=== PATIENT | male | born 1980 | race Asian ===

== ENCOUNTER 2019-04-03 07:02 | Emergency (ER) | payer OTHER ==
[2019-04-03 07:18] VITALS: BP 109/84
[2019-04-03] MEDS ORDERED: Albuterol/Ipratropium NEB.SOL* Albuterol 2.5 MG/Ipratropium 0.5 MG 3 ML INH ONE (07:24)
--- NOTE | 2019-04-03 07:29 | UC ---
Respiratory Complaint HPI - HPI Summary HPI Summary: Mr. Goncalves started with an asthma exacerbation last night. Since midnight is uses inhaler couple of hours most recently just prior to getting here. He states that he's had a cold for a few days but that it's not bad. He has been on steroids before but never been admitted to the hospital. - History of Current Complaint Chief Complaint: UCRespiratory Stated Complaint: asthma Time Seen by Provider: 04/03/19 07:20 Hx Obtained From: Patient Onset/Duration: Sudden Onset Timing: Constant Severity Initially: Moderate Severity Currently: Mild Pain Intensity: 2 Character: Cough: Nonproductive Alleviating Factors: Bronchodilator Associated Signs And Symptoms: Positive: Wheezing - Allergies/Home Medications Allergies/Adverse Reactions: Allergies Allergy/AdvReac Type Severity Reaction Status Date / Time No Known Allergies Allergy Verified 04/03/19 07:18 Home Medications: Home Medications Albuterol HFA INHALER* 1 puff INH 04/03/19 [History] PMH/Surg Hx/FS Hx/Imm Hx Respiratory History: Asthma - Surgical History Surgical History: Yes Surgery Procedure, Year, and Place: cranial - Social History Alcohol Use: None Substance Use Type: None Smoking Status (MU): Never Smoked Tobacco Review of Systems All Other Systems Reviewed And Are Negative: Yes Constitutional: Positive: Negative ENT: Positive: Nasal Discharge Respiratory: Positive: Cough Physical Exam - Summary Physical Exam Summary: He is nontoxic in appearance with stable vital signs aside from tachycardia. Triage Information Reviewed: Yes Appearance: Well-Appearing Vital Signs: Initial Vital Signs Temp 98.4 F 04/03/19 07:11 Pulse 130 04/03/19 07:11 Resp 20 04/03/19 07:11 BP 109/84 04/03/19 07:11 Pulse Ox 100 04/03/19 07:11 Vital Signs Reviewed: Yes ENT Exam: Normal Neck exam: Normal Respiratory: Positive: Wheezing - Mild Cardiovascular: Positive: Tachycardia Skin Exam: Normal Respiratory Course/Dx - Course Course Of Treatment: After DuoNeb his lungs were clear, he felt improved and his heart rate was about 125. He's been using his inhaler a lot and I think that has a lot to do with his heart rate. I recommended a steroid burst and follow up with his PCP - Differential Dx/Diagnosis Provider Diagnosis: Asthma exacerbation Discharge ED - Sign-Out/Discharge Documenting (check all that apply): Patient Departure All imaging exams completed and their final reports reviewed: No Studies - Discharge Plan Condition: Stable Disposition: HOME Patient Education Materials: Asthma (ED) Referrals: Joe Lindsey NP [Primary Care Provider] - - Billing Disposition and Condition Condition: STABLE Disposition: Home
[2019-04-03] MEDS ORDERED: Albuterol HFA INHALER* 8 gm MDI INH ONE (08:14)
== END 2019-04-03 08:23 | disposition home or self-care (01) ==
LOC: UCEAST 07:02
DX: J45.901 Unspecified asthma with (acute) exacerbation (principal); R09.89 Other specified symptoms and signs involving the circulatory and respiratory systems; Z79.51 Long term (current) use of inhaled steroids
CPT/HCPCS: 99213; A9270-GY; G0463